=== PATIENT | female | born 1980 | race Caucasian/White ===

== ENCOUNTER 2016-11-02 16:48 | Emergency (ER) | payer SELFPAY ==
--- NOTE | 2016-11-02 17:07 | UC ---
UC General HPI - HPI Summary HPI Summary: The patient comes in today for: 1. Onset: Palliative/provocative: Quality: Region: Severity: Time: Associated symptoms: * - History of Current Complaint Stated Complaint: VOMITING Time Seen by Provider: 11/02/16 16:52 - Allergy/Home Medications Allergies/Adverse Reactions: Allergies Allergy/AdvReac Type Severity Reaction Status Date / Time No Known Allergies Allergy Verified 11/07/14 10:31 PMH/Surg Hx/FS Hx/Imm Hx - Surgical History Surgical History: Yes Surgery Procedure, Year, and Place: appendectomy - Social History Alcohol Use: Occasionally Substance Use Type: None Smoking Status (MU): Current Every Day Smoker Type: Cigarettes Amount Used/How Often: 1/2 ppd - Immunization History Most Recent Tetanus Shot: unknown
--- NOTE | 2016-11-02 17:17 | UC ---
Abdominal Pain Female HPI - HPI Summary HPI Summary: The patient comes in today for: 1. Abdominal pain and vomiting: Onset: 1.5 months ago. Palliative/provocative: Nothing makes her symptoms better or worse. Quality: Cramping and shooting. Region: Suprapubic area and epigastric area. Severity: Varies from 6/10 to 10/10. Presently it is 6/10 Time: Comes and goes. Associated symptoms: Abdominal pain: This pain also started about 1.5 months ago. She has different pains: 1. Suprapubic pain: Started 1.5 months ago. It is "like a period cramp." This is there "all the time." 6/10. 2. Shooting pain: This pain will come from the suprapubic area as stated above and will shoot and remain in the epigastric area. This pain is more a 10/10. Diarrhea: She has had this for 1.5 months. She has about 2-5 stools/ day. Stools have "mucous" and a mustard yellow color. Vomiting: She will vomit 1-7 times a day. She had vomited today about 7 times. She denies any blood or coffee ground emesis. Urination: "I've not pee'd a lot today." Previous evaluation: None. Previous treatment: None. PCP: "I don't have one--used to be 'family [facility]' in [place]." She can' t say why she is not going there any more. * - History of Current Complaint Chief Complaint: UCGU Stated Complaint: VOMITING Time Seen by Provider: 11/02/16 16:52 Hx Obtained From: Patient Hx Last Menstrual Period: IUD Allergies/Adverse Reactions: Allergies Allergy/AdvReac Type Severity Reaction Status Date / Time No Known Allergies Allergy Verified 11/02/16 17:03 PMH/Surg Hx/FS Hx/Imm Hx Previously Healthy: No - "ulcers." Other Endocrine History: No diabetes or thyroid disease Other Cardiovascular History: No heart or HTN. Other Respiratory History: No asthma, blood clots, hemoptysis. GI/ History: Gastroesophageal Reflux Other GI/ History: No history of intestinal bleeding or kidney disease. Other Neurological History: No seizues or strokes. Other Psychological History: No anxiety or depression. Other Cancer History: No cancers Other History Of: Negative For: HIV, Hepatitis B, Hepatitis C, Anticoagulant Therapy - Surgical History Surgical History: Yes Surgery Procedure, Year, and Place: appendectomy - Family History Known Family History: Positive: Hypertension Negative: Cardiac Disease - Social History Occupation: Employed Full-time Alcohol Use: Occasionally Substance Use Type: None Smoking Status (MU): Current Every Day Smoker Type: Cigarettes Amount Used/How Often: 1/2 ppd - Immunization History Most Recent Tetanus Shot: unknown Review of Systems Constitutional: Negative Skin: Negative Eyes: Negative ENT: Negative Respiratory: Negative Cardiovascular: Negative Gastrointestinal: Abdominal Pain, Vomiting, Diarrhea Genitourinary: Negative All Other Systems Reviewed And Are Negative: Yes Physical Exam Triage Information Reviewed: Yes Appearance: Well-Appearing, No Pain Distress, Well-Nourished, Other: - There is no psychomotor slowing or guarding or vomiting, or retching. She is animated. Vital Signs: Initial Vital Signs Temp 97.4 F 11/02/16 17:00 Pulse 79 11/02/16 17:00 Resp 18 11/02/16 17:00 BP 115/76 11/02/16 17:00 Pulse Ox 100 11/02/16 17:00 Vital Signs Reviewed: Yes Eyes: Negative: Conjunctiva Clear, Discharge ENT: Positive: Hearing grossly normal. Negative: Pharyngeal erythema, Nasal congestion, TM bulging, TM dull, TM red, Tonsillar swelling, Tonsillar exudate Dental: Negative: Gross Decay/Caries @, Dental Fracture @ Neck: Positive: Supple, Nontender, No Lymphadenopathy. Negative: Nuchal Rigidity Respiratory: Positive: Chest non-tender, Lungs clear, No respiratory distress, No accessory muscle use. Negative: Crackles, Wheezing Cardiovascular: Positive: RRR, No Murmur Abdomen Description: Positive: No Organomegaly, Soft. Negative: Nontender - She had some tenderness to deep palpation of the epigastric area and the suprapubic area. But, there is no percussion tenderness or rebound tenderness. , CVA Tenderness (R), CVA Tenderness (L), Distended, Guarding, Peritoneal Signs , Pulsatile Mass Musculoskeletal: Positive: Strength Intact, ROM Intact Neurological: Positive: Alert, Muscle Tone Normal Psychological: Positive: Age Appropriate Behavior, Consolable Skin: Negative: rashes, breakdown Abd Pain Female Course/Dx - Course Course Of Treatment: The patient was told that I did not know for sure what the cause of her abdominal pain is. The patient was told that there are many causes of abdominal pain--some benign to some which are. life-threatening. And the life-threatening causes may present with minimal symptoms, atypical symptoms,. or even be present with no symptoms. Due to this, it is necessary for us to rely on testing (blood, urine. and imaging studies) with their timely results to help us determine the seriousness of what the patient. may have. The patient was told that we are not set up to offer the broad range of tests for abdominal pain. nor their timely results that are usually used for the assessment of abdominal pain. The patient was told of the diagnostic and treatment options that we can offer. She decided to go to the ER via private car. No call was placed to the ER as this is the new policy. - Differential Dx/Diagnosis Provider Diagnoses: abdominal pain (epigastric and suprapubic) Discharge - Discharge Plan Condition: Stable Disposition: AGAINST MEDICAL ADVICE Additional Instructions: Patient stated that she was going to the ER via private car.
[2016-11-02 17:38] VITALS: BP 124/84
== END 2016-11-02 17:32 | disposition left against medical advice (07) ==
LOC: UCEAST 16:48
DX: R10.13 Epigastric pain (principal); K21.9 Gastro-esophageal reflux disease without esophagitis; F17.210 Nicotine dependence, cigarettes, uncomplicated
CPT/HCPCS: 99212; G0463

== ENCOUNTER 2016-11-02 17:59 | Emergency (ER) | payer SELFPAY ==
[2016-11-02] MEDS ORDERED: Pantoprazole IV* 40 MG IV ONE (19:13)
[2016-11-02] MEDS ORDERED: Ondansetron INJ* 2 MG/ML VIAL IV ONE (19:13)
[2016-11-02] MEDS ORDERED: Morphine INJ* 4 MG/ML 1 ML SYRINGE IV ONE (19:13)
[2016-11-02] MEDS: NS 0.9% 1000 ML* 2,000 ML IV ONE ×2 (19:27→20:25)
[2016-11-02 19:29] LABS: Hematocrit 42 % (35-47); Hemoglobin 14.3 g/dl (12.0-16.0); Mean Corpuscular HGB Conc 34 g/dl (31-36); Mean Corpuscular Hemoglobin 32 pg (27-31); Mean Corpuscular Volume 94 fL (80-97); Mean Platelet Volume 8 um3 (7.4-10.4); Red Blood Count 4.47 10^6/ul (4.0-5.4); Red Cell Distribution Width 13 % (10.5-15); White Blood Count 14.9 10^3/ul (3.5-10.8)
[2016-11-02 19:49] LABS: ALT 7 U/L (7-52); AST 15 U/L (13-39); Albumin 4.2 g/dL (3.2-5.2); Alkaline Phosphatase 47 U/L (34-104); Amylase 40 U/L (29-103); Anion Gap 6 mmol/L (2-11); BUN/Creatinine Ratio 16.5 (8-20); Blood Urea Nitrogen 14 mg/dL (6-24); C Reactive Protein < 1.00 mg/L (< 5.00); CO2 Carbon Dioxide 24 mmol/L (22-32); Calcium 9.2 mg/dL (8.6-10.3); Chloride 105 mmol/L (101-111); Creatine Kinase 58 U/L (10-223); EGFR African American 98.5 (>60); EGFR Non-African American 76.6 (>60); Globulin 2.8 g/dL (2-4); Glucose 87 mg/dL (70-100); Lipase 23 U/L (11.0-82.0); Potassium 3.8 mmol/L (3.5-5.0); Sodium 135 mmol/L (133-145)
--- NOTE | 2016-11-02 19:57 | RAD ---
INDICATION: ] Right upper quadrant pain COMPARISON: Gallbladder sonogram December 07, 2013 TECHNIQUE: Longitudinal and transverse scans of the right upper quadrant were obtained. Doppler interrogation of the hepatic and portal venous system was performed. FINDINGS: Liver: The liver is normal in size and echogenicity. There are no focal masses. The liver measures 17.7 cm in cephalocaudal dimension. Vessels: There is normal hepatic and portal venous flow. Bile ducts: There is no evidence of intrahepatic or extrahepatic ductal dilatation. The common duct measures 0.2 cm. There is a fold in the gallbladder. Gallbladder: The sonographic appearance of the gallbladder is normal. There is no evidence of cholelithiasis, thickening of the gallbladder wall, or pericholecystic fluid. Pancreas: The visualized pancreas appears normal Right kidney: The right kidney is normal in size and echogenicity. There are no masses or calculi. There is no evidence of hydronephrosis. The right kidney measures 10.6 x 4.3 x 4.7 cm. IVC and aorta: The aorta and superior vena cava appear normal. Fluid: There is no ascites. Other: None. IMPRESSION: NORMAL STUDY.
[2016-11-02 20:00] LABS: Urine Bilirubin Negative (Negative); Urine Glucose Negative (Negative); Urine Nitrite Negative (Negative)
[2016-11-02] MEDS ORDERED: Iohexol 300* (CONTRAST) 10 ML SDV IV ONE (20:07)
--- NOTE | 2016-11-02 21:30 | RAD ---
INDICATION: Abdominal pain. Colitis. Diarrhea.. COMPARISON: Color sonogram same date; CT abdomen pelvis August 10, 2009 TECHNIQUE: Axial source images were obtained from the hemidiaphragms to the symphysis pubis following administration of oral and intravenous contrast. 60 mL Omnipaque 300 was utilized. Coronal and sagittal reconstructed images were acquired. Lung bases: The lung bases are clear. Liver: The liver is normal in size. There are no masses. There is no ductal dilatation. Gallbladder: There are calcified gallstones. There is no evidence of wall thickening or pericholecystic fluid. Spleen: The spleen is normal in size. There are no masses. Pancreas: There is no focal pancreatic mass or ductal dilatation. Adrenal glands: There is no evidence of adrenal mass. Kidneys: The kidneys are normal in size and position. There are prompt nephrograms and there is prompt excretion bilaterally. There are no renal parenchymal masses. There is no evidence of nephrolithiasis. Adenopathy: There is no evidence of adenopathy by size criteria. Fluid collections: There are no free or localized fluid collections. Vessels:There are no significant atherosclerotic changes involving the aorta. There is no focal aneurysm. The iliac vessels are normal in caliber. The IVC appears normal. GI tract: There are no acute CT bowel findings. There is no obstruction. The stomach and small bowel appear normal. The lower GI tract is normal. The cecum, ileocecal valve, and terminal ileum appear normal. There is appendectomy. Pelvic organs: The uterus and adnexa appear normal and there is an IUD. Bladder: There are no bladder masses. Abdominal and pelvic soft tissues: The extraperitoneal abdominal and pelvic soft tissues appear normal.. Osseous structures: There are no acute osseous findings. Other: None IMPRESSION: NO ACUTE CT FINDINGS. NO MASS OR INFLAMMATORY CHANGES.
[2016-11-02] MEDS ORDERED: Ondansetron ODT TAB* 4 MG PO ONE (22:15)
[2016-11-02 22:25] VITALS: BP 110/88
--- NOTE | 2016-11-02 22:56 | ED ---
Shantel Warren Claudia, scribed for Jeremy Barrett MD on 11/02/16 at 1856 . Abdominal Pain/Female - HPI Summary HPI Summary: 36 year old female presents to the ED with abd pain and NVD. Pt states she has had these Sx for about 1 month. She states constant suprapubic cramping with intermittent episodes of sharp pain radiating to her eipgastrium and RUQ. Pt sates NVD for 1 month. She notes some days are worse than others but most days include bouts of emesis and diarrhea. She notes PO aggravates her Sx. She notes that she has been unable to keep down water and food today. Pt notes that she intermittently takes Aleve for the pain which has not helped in alleviating her pain. She notes current pain 12/11. She also notes some changes to her urine over the pats month stating it is a darker yellow color with some odorous quality but denies it being a dark brown color. Pt also denies any bloody stool , no excessive use of aspirin, recent travel. She does note that her clothes could have gotten a little baggy in the last month but she is unsure of any significant weight loss. Pt also notes some recent spontaneous bruising to her hands and feet and is unsure if it is related. PMHx of Gastritis PSHx Appendectomy - History of Current Complaint Chief Complaint: EDAbdPain Stated Complaint: ABD PAIN, COMMING FROM [facility] Hx Obtained From: Patient Hx Last Menstrual Period: unknown, mirena Timing: Constant Pain Intensity: 7 Pain Scale Used: 0-10 Numeric Location: Discrete At: RUQ, Discrete At: RLQ, Discrete At: LUQ, Epigastric Radiates: Yes Character: Sharp, Cramping Aggravating Factor(s): Food Alleviating Factor(s): Nothing Associated Signs and Symptoms: Positive: Decreased Appetite, Nausea, Vomiting, Diarrhea. Negative: Fever, Blood in Stool Allergies/Adverse Reactions: Allergies Allergy/AdvReac Type Severity Reaction Status Date / Time No Known Allergies Allergy Verified 11/02/16 17:03 PMH/Surg Hx/FS Hx/Imm Hx Previously Healthy: Yes Endocrine/Hematology History: Denies: Hx Anticoagulant Therapy, Hx Diabetes, Hx Thyroid Disease Cardiovascular History: Denies: Hx Hypertension Respiratory History: Denies: Hx Asthma, Hx Chronic Obstructive Pulmonary Disease (COPD) GI History: Denies: Hx Ulcer - Surgical History Surgery Procedure, Year, and Place: appendectomy Infectious Disease History: No Infectious Disease History: Denies: Hx Clostridium Difficile, Hx Hepatitis, Hx Human Immunodeficiency Virus (HIV), Hx of Known/Suspected MRSA, Hx Shingles, Hx Tuberculosis, Hx Known/ Suspected VRE, Hx Known/Suspected VRSA, History Other Infectious Disease, Traveled Outside the [place] in Last 30 Days - Family History Known Family History: Positive: Hypertension Negative: Cardiac Disease - Social History Occupation: Employed Full-time Lives: With Family Alcohol Use: Occasionally Substance Use Type: Reports: None Smoking Status (MU): Current Every Day Smoker Type: Cigarettes Amount Used/How Often: 1/2 ppd Review of Systems Positive: Chills. Negative: Fever Eyes: Negative ENT: Negative Cardiovascular: Negative Respiratory: Negative Positive: Abdominal Pain, Vomiting, Diarrhea, Nausea Positive: other - increased in yelow color of urine with some odorous quality Skin: Negative Neurological: Negative Psychological: Normal All Other Systems Reviewed And Are Negative: Yes Physical Exam - Summary Physical Exam Summary: The patient is well-nourished in no acute distress and in no acute pain. The skin is warm and dry and skin color reflects adequate perfusion. HEENT: The head is normocephalic and atraumatic. The pupils are equal and reactive. The conjunctivae are clear and without drainage. Nares are patent and without drainage. Mouth reveals moist mucous membranes and the throat is without erythema and exudate. The external ears are intact. The ear canals are patent and without drainage. The tympanic membranes are intact. Sclera clear, no pallor or janudice. Neck is supple with full range of motion and non-tender. There are no carotid bruits. There is no neck vein distension. Respiratory: Chest is non-tender. Lungs are clear to auscultation and breath sounds are symmetrical and equal. Cardiovascular: Hear is regular rate and rhythm. There is no murmur or rub auscultated. There is no peripheral edema and pulses are symmetrical and equal. Abdomen: The abdomen is soft and tender at the RUQ, RLQ, and LLQ. No tenderness over the ovaries. Hyperactive bowel sounds four quadrants and there is no organomegaly palpated. No CVA tenderness Musculoskeletal: There is no back pain noted. Extremities are non-tender with full range of motion. There is good capillary refill. There is no peripheral edema or calf tenderness elicited. Neurological: Patient is alert and oriented to person, place and time. The patient has symmetrical motor strength in all four extremities. Cranial nerves are grossly intact. Deep tendon reflexes are symmetrical and equal in all four extremities. Psychiatric: The patient has an appropriate affect and does not exhibit any anxiety or depression. Triage Information Reviewed: Yes Vital Signs On Initial Exam: Initial Vitals Temp Pulse Resp BP Pulse Ox 98.2 F 80 20 119/73 100 11/02/16 18:06 11/02/16 18:06 11/02/16 18:06 11/02/16 18:06 11/02/16 18:06 Vital Signs Reviewed: Yes - [place] Coma Scale Coma Scale Total: 15 Diagnostics - Vital Signs Vital Signs Temp Pulse Resp BP Pulse Ox 11/02/16 18:30 72 108/62 100 11/02/16 18:29 81 98 11/02/16 18:28 116/77 11/02/16 18:08 97.9 F 78 20 119/73 100 11/02/16 18:06 98.2 F 80 20 119/73 100 - Laboratory Lab Results: Lab Results 11/02/16 11/02/16 11/02/16 Range/Units 18:21 19:20 19:20 WBC 14.9 H (3.5-10.8) 10^3/ul RBC 4.47 (4.0-5.4) 10^6/ul Hgb 14.3 (12.0-16.0) g/dl Hct 42 (35-47) % MCV 94 (80-97) fL MCH 32 H (27-31) pg MCHC 34 (31-36) g/dl RDW 13 (10.5-15) % Plt Count 327 (150-450) 10^3/ul MPV 8 (7.4-10.4) um3 Neut % (Auto) 69.0 (38-83) % Lymph % (Auto) 20.6 L (25-47) % [place] % (Auto) 7.1 (1-9) % Eos % (Auto) 1.4 (0-6) % Baso % (Auto) 1.9 (0-2) % Absolute Neuts (auto) 10.3 H (1.5-7.7) 10^3/ul Absolute Lymphs (auto) 3.1 (1.0-4.8) 10^3/ul Absolute Monos (auto) 1.1 H (0-0.8) 10^3/ul Absolute Eos (auto) 0.2 (0-0.6) 10^3/ul Absolute Basos (auto) 0.3 H (0-0.2) 10^3/ul Absolute Nucleated RBC 0.01 10^3/ul Nucleated RBC % 0.1 Sodium 135 (133-145) mmol/L Potassium 3.8 (3.5-5.0) mmol/L Chloride 105 (101-111) mmol/L Carbon Dioxide 24 (22-32) mmol/L Anion Gap 6 (2-11) mmol/L BUN 14 (6-24) mg/dL Creatinine 0.85 (0.51-0.95) mg/dL Est GFR ( Amer) 98.5 (>60) Est GFR (Non-Af Amer) 76.6 (>60) BUN/Creatinine Ratio 16.5 (8-20) Glucose 87 (70-100) mg/dL Lactic Acid (0.5-2.0) mmol/L Calcium 9.2 (8.6-10.3) mg/dL Total Bilirubin 1.00 (0.2-1.0) mg/dL AST 15 (13-39) U/L ALT 7 (7-52) U/L Alkaline Phosphatase 47 (34-104) U/L Total Creatine Kinase 58 (10-223) U/L C-Reactive Protein < 1.00 (< 5.00) mg/L Total Protein 7.0 (6.4-8.9) g/dL Albumin 4.2 (3.2-5.2) g/dL Globulin 2.8 (2-4) g/dL Albumin/Globulin Ratio 1.5 (1-3) Amylase 40 (29-103) U/L Lipase 23 (11.0-82.0) U/L Beta HCG, Quant < 0.60 mIU/mL Urine Color Yellow Urine Appearance Clear Urine pH 7.0 (5-9) Ur Specific [place] 1.020 (1.010-1.030) Urine Protein Negative (Negative) Urine Ketones Negative (Negative) Urine Blood Negative (Negative) Urine Nitrate Negative (Negative) Urine Bilirubin Negative (Negative) Urine Urobilinogen Negative (Negative) Ur Leukocyte Esterase Negative (Negative) Urine Glucose Negative (Negative) 11/02/16 Range/Units 19:20 WBC (3.5-10.8) 10^3/ul RBC (4.0-5.4) 10^6/ul Hgb (12.0-16.0) g/dl Hct (35-47) % MCV (80-97) fL MCH (27-31) pg MCHC (31-36) g/dl RDW (10.5-15) % Plt Count (150-450) 10^3/ul MPV (7.4-10.4) um3 Neut % (Auto) (38-83) % Lymph % (Auto) (25-47) % [place] % (Auto) (1-9) % Eos % (Auto) (0-6) % Baso % (Auto) (0-2) % Absolute Neuts (auto) (1.5-7.7) 10^3/ul Absolute Lymphs (auto) (1.0-4.8) 10^3/ul Absolute Monos (auto) (0-0.8) 10^3/ul Absolute Eos (auto) (0-0.6) 10^3/ul Absolute Basos (auto) (0-0.2) 10^3/ul Absolute Nucleated RBC 10^3/ul Nucleated RBC % Sodium (133-145) mmol/L Potassium (3.5-5.0) mmol/L Chloride (101-111) mmol/L Carbon Dioxide (22-32) mmol/L Anion Gap (2-11) mmol/L BUN (6-24) mg/dL Creatinine (0.51-0.95) mg/dL Est GFR ( Amer) (>60) Est GFR (Non-Af Amer) (>60) BUN/Creatinine Ratio (8-20) Glucose (70-100) mg/dL Lactic Acid 1.0 (0.5-2.0) mmol/L Calcium (8.6-10.3) mg/dL Total Bilirubin (0.2-1.0) mg/dL AST (13-39) U/L ALT (7-52) U/L Alkaline Phosphatase (34-104) U/L Total Creatine Kinase (10-223) U/L C-Reactive Protein (< 5.00) mg/L Total Protein (6.4-8.9) g/dL Albumin (3.2-5.2) g/dL Globulin (2-4) g/dL Albumin/Globulin Ratio (1-3) Amylase (29-103) U/L Lipase (11.0-82.0) U/L Beta HCG, Quant mIU/mL Urine Color Urine Appearance Urine pH (5-9) Ur Specific [place] (1.010-1.030) Urine Protein (Negative) Urine Ketones (Negative) Urine Blood (Negative) Urine Nitrate (Negative) Urine Bilirubin (Negative) Urine Urobilinogen (Negative) Ur Leukocyte Esterase (Negative) Urine Glucose (Negative) Result Diagrams: 11/02/16 19:20 11/02/16 19:20 Lab Statement: Any lab studies that have been ordered have been reviewed, and results considered in the medical decision making process. - CT CT ABD PELVIS CT Interpretation: No Acute Changes - NO ACUTE CT FINDINGS. NO MASS OR INFLAMMATORY CHANGES. CT Interpretation Completed By: Radiologist - Ultrasound No standard instances Ultrasound Interpretation: No Acute Changes - GALLBLADDER STUDY: NORMAL STUDY Ultrasound Interpretation Completed By: Radiologist Re-Evaluation - Re-Evaluation 1 Re-Evaluation Time: 22:03 Change: Improved Comment: Lab results and imaging are discussed with patient whom is agreeable with the plan to be d/c home with follow-up with GI. Abdominal Pain Fem Course/Dx - Course Course Of Treatment: MDM: 36 year old pt presents to the ED with abd pain. Concerned for diverticulitis and gallbladder disease. CT Abd/Pelvis and US Gallbladder displayed no acute findings. Labwork was within nml limits. Pt will be d/c home and followe-up with GI Dr. Jurado - Diagnoses Differential Diagnosis: Positive: Bowel Obstruction, Constipation, Diverticulitis, Gall Bladder Disease, Irritable Bowel Syndrome, Pancreatitis, Renal Colic, Other - crohn's, colitis, ulcerative colitis, peptic ulcer disease , dehydration Provider Diagnoses: Abdominal pain Discharge - Discharge Plan Condition: Stable Disposition: HOME Prescriptions: Hydrocodone-Acetaminophen [Traphill 5-325 mg] 1 tab PO QID #20 tab MDD 4 Ondansetron ODT TAB* [Zofran 4 MG Odt TAB*] 4 mg PO Q8H PRN #10 tab.odt PRN Reason: nausea Patient Education Materials: Abdominal Pain (ED) Referrals: MANOHAR BhatEnrique [Primary Care Provider] - David Jurado MD [Medical Doctor] - 4 Days (Follow-up with a Gastrointestinal Physician ) The documentation as recorded by the Shantel chaves Claudia accurately reflects the service I personally performed and the decisions made by me, Jeremy Barrett MD.
== END 2016-11-02 22:24 | disposition home or self-care (01) ==
LOC: ED 17:59
DX: R10.84 Generalized abdominal pain (principal); R11.2 Nausea with vomiting, unspecified; R19.7 Diarrhea, unspecified; F17.210 Nicotine dependence, cigarettes, uncomplicated
CPT/HCPCS: 36415; 74177; 76705; 80053; 81003; 82150; 82550; 83605; 83690; 84702; 85025; 86140; 96374; 99283; A9270-GY; J2270; J2405; Q9967

== ENCOUNTER 2018-08-19 18:25 | Emergency (ER) | payer SELFPAY ==
[2018-08-19 21:09] LABS: ABS Basophils 0.1 10^3/ul (0-0.2); ABS Eosinophils 0.1 10^3/ul (0-0.6); ABS Lymphocytes 3.2 10^3/ul (1.0-4.8); ABS Monocytes 0.5 10^3/ul (0-0.8); ABS Neutrophils 5.1 10^3/ul (1.5-7.7); ABS Nucleated RBC 0 10^3/ul; Eosinophil % 1.6 %; Hematocrit 43 % (33-41); Hemoglobin 14.7 g/dL (12.0-16.0); Lymphocyte % 35.7 %; Mean Corpuscular HGB Conc 35 g/dL (31-36); Mean Corpuscular Hemoglobin 32 pg (27-31); Mean Corpuscular Volume 93 fL (80-97); Mean Platelet Volume 7.5 fL (7.4-10.4); Nucleated Red Blood Cells % 0; Platelet Count 383 10^3/uL (150-450); Red Blood Count 4.62 10^6 /uL (3.70-4.87); Red Cell Distribution Width 13 % (10.5-15)
[2018-08-19 21:26] LABS: Albumin 4.7 g/dL (3.2-5.2); Albumin/Globulin Ratio 1.7 (1-3); BUN/Creatinine Ratio 15.7 (8-20); C Reactive Protein 2.68 mg/L (<8.01); Calcium 9.5 mg/dL (8.6-10.3); EGFR African American 94.1 (>60); EGFR Non-African American 77.8 (>60); Globulin 2.8 g/dL (2-4); Potassium 4.1 mmol/L (3.5-5.0); Total Bilirubin 0.6 mg/dL (0.2-1.0); Total Protein 7.5 g/dL (6.4-8.9)
[2018-08-19] MEDS ORDERED: Ketorolac INJ* 30 MG/ML 1 ML VIAL IV PUSH ONE (22:58)
[2018-08-19] MEDS ORDERED: Metoclopramide IV* 5 MG/ML 2 ML VIAL IV SLOW PU ONE (22:59)
[2018-08-19] MEDS ORDERED: NS 0.9% 1000 ML** 1,000 ML IV ONE (22:59)
--- NOTE | 2018-08-19 23:08 | ED ---
Abdominal Pain/Female - HPI Summary HPI Summary: Pt is a 38 y/o F presenting to the ED with a chief complaint of lower left back pain that radiates to her LLQ abd, including vomiting. The pain came on last night but vomiting and diarrhea has been intermittent for a couple months due to anxiety. She takes Sudafed at night for bad headaches, which she has now. She also reports her urine smells weird, and she does not get her period because she has an IUD. - History of Current Complaint Chief Complaint: EDAbdPain Stated Complaint: BACK PAIN PER PT Time Seen by Provider: 08/19/18 22:44 Hx Obtained From: Patient Hx Last Menstrual Period: unknown, mirena Onset/Duration: Gradual Onset, Lasting Days, Still Present Timing: Constant Severity Initially: Severe Severity Currently: Severe Pain Intensity: 10 Pain Scale Used: 0-10 Numeric Location: Discrete At: LLQ Radiates: Yes Radiates to: Back Character: Sharp, Cramping Aggravating Factor(s): Movement Alleviating Factor(s): Nothing Associated Signs and Symptoms: Positive: Urinary Symptoms - foul odor, Nausea, Vomiting, Diarrhea Allergies/Adverse Reactions: Allergies Allergy/AdvReac Type Severity Reaction Status Date / Time No Known Allergies Allergy Verified 08/19/18 18:37 Home Medications: Home Medications NK [No Home Medications Reported] 08/19/18 [History Confirmed 08/19/18] PMH/Surg Hx/FS Hx/Imm Hx Previously Healthy: Yes Endocrine/Hematology History: Denies: Hx Anticoagulant Therapy, Hx Diabetes, Hx Thyroid Disease Cardiovascular History: Denies: Hx Hypertension Respiratory History: Denies: Hx Asthma, Hx Chronic Obstructive Pulmonary Disease (COPD) GI History: Denies: Hx Ulcer - Surgical History Surgery Procedure, Year, and Place: appendectomy Infectious Disease History: No Infectious Disease History: Denies: Hx Clostridium Difficile, Hx Hepatitis, Hx Human Immunodeficiency Virus (HIV), Hx of Known/Suspected MRSA, Hx Shingles, Hx Tuberculosis, Hx Known/ Suspected VRE, Hx Known/Suspected VRSA, History Other Infectious Disease, Traveled Outside the [place] in Last 30 Days - Family History Known Family History: Positive: Hypertension Negative: Cardiac Disease - Social History Alcohol Use: Occasionally Hx Substance Use: No Substance Use Type: Reports: None Hx Tobacco Use: Yes Smoking Status (MU): Current Every Day Smoker Type: Cigarettes Amount Used/How Often: 1/2 ppd Review of Systems Negative: Fever Positive: Abdominal Pain, Vomiting, Diarrhea, Nausea Positive: other - foul odor to urine Positive: Myalgia - back pain Positive: Headache All Other Systems Reviewed And Are Negative: Yes Physical Exam - Summary Physical Exam Summary: VITAL SIGNS: Reviewed. GENERAL: Patient is a well-developed and nourished female who is lying comfortable in the stretcher. Patient is not in any acute respiratory distress. HEAD AND FACE: No signs of trauma. No ecchymosis, hematomas or skull depressions. No sinus tenderness. EYES: PERRLA, EOMI x 2, No injected conjunctiva, no nystagmus. EARS: Hearing grossly intact. Ear canals and tympanic membranes are within normal limits. MOUTH: Oropharynx within normal limits. NECK: Supple, trachea is midline, no adenopathy, no JVD, no carotid bruit, no c- spine tenderness, neck with full ROM. CHEST: Symmetric, no tenderness at palpation LUNGS: Clear to auscultation bilaterally. No wheezing or crackles. CVS: Regular rate and rhythm, S1 and S2 present, no murmurs or gallops appreciated. ABDOMEN: LLQ tenderness. No signs of distention. No rebound no guarding, and no masses palpated. Hyperactive bowel sounds. L CVA tenderness. EXTREMITIES: FROM in all major joints, no edema, no cyanosis or clubbing. NEURO: Alert and oriented x 3. No acute neurological deficits. Speech is normal and follows commands. SKIN: Dry and warm Triage Information Reviewed: Yes Vital Signs On Initial Exam: Initial Vitals Temp Pulse Resp BP Pulse Ox 98.4 F 123 16 148/122 97 08/19/18 18:34 08/19/18 18:34 08/19/18 18:34 08/19/18 18:34 08/19/18 18:34 Vital Signs Reviewed: Yes Diagnostics - Vital Signs Vital Signs Temp Pulse Resp BP Pulse Ox 08/19/18 20:34 98.2 F 79 20 124/93 99 08/19/18 18:34 98.4 F 123 16 148/122 97 - Laboratory Lab Results: Lab Results 08/19/18 08/19/18 08/19/18 Range/Units 21:02 21:02 21:02 WBC 9.0 (3.5-10.8) 10^3/uL RBC 4.62 (3.70-4.87) 10^6 /uL Hgb 14.7 (12.0-16.0) g/dL Hct 43 H (33-41) % MCV 93 (80-97) fL MCH 32 H (27-31) pg MCHC 35 (31-36) g/dL RDW 13 (10.5-15) % Plt Count 383 (150-450) 10^3/uL MPV 7.5 (7.4-10.4) fL Neut % (Auto) 56.1 % Lymph % (Auto) 35.7 % [place] % (Auto) 5.6 % Eos % (Auto) 1.6 % Baso % (Auto) 1.0 % Absolute Neuts (auto) 5.1 (1.5-7.7) 10^3/ul Absolute Lymphs (auto) 3.2 (1.0-4.8) 10^3/ul Absolute Monos (auto) 0.5 (0-0.8) 10^3/ul Absolute Eos (auto) 0.1 (0-0.6) 10^3/ul Absolute Basos (auto) 0.1 (0-0.2) 10^3/ul Absolute Nucleated RBC 0 10^3/ul Nucleated RBC % 0 Sodium 138 (135-145) mmol/L Potassium 4.1 (3.5-5.0) mmol/L Chloride 104 (101-111) mmol/L Carbon Dioxide 26 (22-32) mmol/L Anion Gap 8 (2-11) mmol/L BUN 13 (6-24) mg/dL Creatinine 0.83 (0.51-0.95) mg/dL Est GFR ( Amer) 94.1 (>60) Est GFR (Non-Af Amer) 77.8 (>60) BUN/Creatinine Ratio 15.7 (8-20) Glucose 102 H (70-100) mg/dL Calcium 9.5 (8.6-10.3) mg/dL Total Bilirubin 0.60 (0.2-1.0) mg/dL AST 14 (13-39) U/L ALT 7 (7-52) U/L Alkaline Phosphatase 59 (34-104) U/L C-Reactive Protein 2.68 (<8.01) mg/L Total Protein 7.5 (6.4-8.9) g/dL Albumin 4.7 (3.2-5.2) g/dL Globulin 2.8 (2-4) g/dL Albumin/Globulin Ratio 1.7 (1-3) Lipase 32 (11.0-82.0) U/L Beta HCG, Quant < 0.60 mIU/mL Result Diagrams: 08/19/18 21:02 08/19/18 21:02 Lab Statement: Any lab studies that have been ordered have been reviewed, and results considered in the medical decision making process. - CT abdomen/pelvis CT Interpretation Completed By: Radiologist Summary of CT Findings: 1. Right lower lobe pulmonary nodule. 2. Small fat containing umbilical hernia. 3. Intrauterine device seen in place, as described above. ED physician has reviewed this imaging report. Abdominal Pain Fem Course/Dx - Course Course Of Treatment: Pt is a 38 y/o F presenting to the ED with a chief complaint of lower left back pain that radiates to her LLQ abd, including vomiting. The pain came on last night but vomiting and diarrhea has been intermittent for a couple months due to anxiety. She takes Sudafed at night for bad headaches, which she has now. She also reports her urine smells weird, and she does not get her period because she has an IUD. CT abdomen/pelvis impression: 1. Right lower lobe pulmonary nodule. 2. Small fat containing umbilical hernia. 3. Intrauterine device seen in place, as described above. In the ED course the patient was given Reglan IV and Toradol IV. Bloodwork, chemistries and urines obtained. Urine blood 2+. The patient will be discharged home. She is agreeable with this plan. - Diagnoses Provider Diagnoses: Lung nodule, Abdominal pain Discharge - Sign-Out/Discharge Documenting (check all that apply): Patient Departure - DC Patient Received Moderate/Deep Sedation with Procedure: No - Discharge Plan Condition: Stable Disposition: HOME Patient Education Materials: Abdominal Pain (ED), Pulmonary Nodules (ED) Referrals: [facility] REFERRAL [Outside] (1-2 days) Additional Instructions: RETURN TO THE EMERGENCY DEPARTMENT FOR CHANGING OR WORSENING SYMPTOMS. FOLLOW UP WITH PCP IN 1-2 DAYS. - Billing Disposition and Condition Condition: STABLE Disposition: Home - Attestation Statements Document Initiated by Scribe: Yes Documenting Scribe: Emy O'Balbir Provider For Whom Scribe is Documenting (Include Credential): Gemma Barrera MD. Scribe Attestation: IEmy, scribed for Gemma Barrera MD. on 08/20/18 at 0615. Scribe Documentation Reviewed: Yes Provider Attestation: The documentation as recorded by the scribe, Emy Sorto accurately reflects the service I personally performed and the decisions made by me, Gemma Barrera MD. Status of Scribe Document: Viewed
[2018-08-19 23:22] LABS: Urine Appearance Clear; Urine Bacteria Absent (Absent); Urine Bilirubin Negative (Negative); Urine Blood 2+ (Negative); Urine Color Yellow; Urine Glucose Negative (Negative); Urine Ketones Negative (Negative); Urine Nitrite Negative (Negative); Urine Protein Negative (Negative); Urine Red Blood Cell Trace(0-2/hpf) (Absent); Urine Specific Gravity 1.011 (1.010-1.030); Urine Urobilinogen Negative (Negative); Urine White Blood Cell Absent (Absent)
[2018-08-20 01:17] VITALS: BP 113/68
== END 2018-08-20 01:17 | disposition home or self-care (01) ==
LOC: ED 18:25
DX: M54.5 Low back pain (principal); R91.1 Solitary pulmonary nodule; R10.9 Unspecified abdominal pain; F17.210 Nicotine dependence, cigarettes, uncomplicated; R11.2 Nausea with vomiting, unspecified
CPT/HCPCS: 36415; 74176; 80053; 81003; 81015; 83690; 84702; 85025; 86140; 96361; 96374; 96375; 99282; J1885; J2765

== ENCOUNTER 2019-01-08 18:53 | Emergency (ER) | payer OTHER ==
[2019-01-08 19:11] VITALS: BP 123/88
[2019-01-08] MEDS ORDERED: Ibuprofen TAB* 600 MG PO ONE (20:21)
--- NOTE | 2019-01-08 20:35 | UC ---
Elbow Pain - HPI Summary HPI Summary: 38 yo female slipped on wet steps and landed on right elbow numb from shoulder down tender and swollen over point of elbow - History of Current Complaint Chief Complaint: UCUpperExtremity Stated Complaint: ARM INJURY Time Seen by Provider: 01/08/19 20:30 Hx Obtained From: Patient Hx Last Menstrual Period: iud Onset/Duration: Hours Severity Initially: Severe Severity Currently: Severe Pain Intensity: 10 Pain Scale Used: 0-10 Numeric Character: Aching, Throbbing Aggravating Factor(s): Movement Alleviating Factor(s): Nothing Associated Signs And Symptoms: Positive: Numbness/Tingling - shoulder down - Allergies/Home Medications Allergies/Adverse Reactions: Allergies Allergy/AdvReac Type Severity Reaction Status Date / Time No Known Allergies Allergy Verified 01/08/19 19:11 PMH/Surg Hx/FS Hx/Imm Hx Previously Healthy: Yes Other History Of: Negative For: HIV, Hepatitis B, Hepatitis C, Anticoagulant Therapy - Surgical History Surgical History: Yes Surgery Procedure, Year, and Place: appendectomy - Family History Known Family History: Positive: Hypertension, Non-Contributory Negative: Cardiac Disease - Social History Alcohol Use: Occasionally Substance Use Type: None Smoking Status (MU): Light Every Day Tobacco Smoker Type: Cigarettes Amount Used/How Often: 1/2 ppd Household Exposure Type: Cigarettes - Immunization History Most Recent Tetanus Shot: unknown Review of Systems All Other Systems Reviewed And Are Negative: Yes Constitutional: Positive: Negative Skin: Positive: Negative Eyes: Positive: Negative ENT: Positive: Negative Respiratory: Positive: Negative Cardiovascular: Positive: Negative Gastrointestinal: Positive: Negative Genitourinary: Positive: Negative Musculoskeletal: Positive: Arthralgia - right elbow Neurological: Positive: Numbness - from shoulder down Psychological: Positive: Negative Physical Exam Triage Information Reviewed: Yes Appearance: Pain Distress Vital Signs: Initial Vital Signs Temp 97.8 F 01/08/19 19:05 Pulse 90 01/08/19 19:05 Resp 16 01/08/19 19:05 BP 123/88 01/08/19 19:05 Pulse Ox 100 01/08/19 19:05 Vital Signs Reviewed: Yes Eyes: Positive: Conjunctiva Clear ENT: Positive: Hearing grossly normal. Negative: Nasal congestion, Nasal drainage, Trismus, Muffled voice, Hoarse voice Neck: Positive: Supple, Nontender, No Lymphadenopathy Respiratory: Positive: Lungs clear, Normal breath sounds, No respiratory distress, No accessory muscle use Cardiovascular: Positive: RRR, No Murmur Musculoskeletal: Positive: ROM Limited @ - r sholder/elbow/wrist, Edema @ - over elecranon Neurological: Positive: Alert Psychological Exam: Normal Skin Exam: Normal Images Front/Back of Body, Lg ([place]): 1 - tender 2 - numb Diagnostics - Radiology No standard instances Radiology Interpretation Completed By: Radiologist Summary of Radiographic Findings: spur olecranon- no fx noted Elbow Pain Course/Dx - Differential Dx/Diagnosis Provider Diagnosis: Contusion of right elbow, Injury of right brachial plexus, Effusion of right olecranon bursa Discharge - Sign-Out/Discharge Documenting (check all that apply): Patient Departure All imaging exams completed and their final reports reviewed: No - Discharge Plan Condition: Stable Disposition: HOME Forms: *Work Release Referrals: Emily Fernandes MD [Medical Doctor] - Additional Instructions: let us know if you have trouble seeing an orthopedist tomorrow I think you have sustained a RIGHT BRACHIAL PLEXUS INJURY You also have a right elbow contusion You have a right olecranon effusion sling adelfo otoole - Billing Disposition and Condition Condition: STABLE Disposition: Home
[2019-01-08] MEDS ORDERED: Ibuprofen TAB* 600 MG ONE (20:37)
[2019-01-08] MEDS ORDERED: HYDROcodone/ACETAMIN 5-325 MG* 1 TAB PO ONE (20:54)
[2019-01-08] MEDS ORDERED: HYDROcodone/ACETAMIN 5-325 MG* 1 TAB ONE (20:58)
--- NOTE | 2019-01-09 07:39 | UC ---
- Progress Note Progress Note: Chart reviewed Elbow XR with no fracture No change in plan Course/Dx - Diagnoses Provider Diagnoses: Contusion of right elbow, Injury of right brachial plexus, Effusion of right olecranon bursa Discharge - Sign-Out/Discharge Documenting (check all that apply): Post-Discharge Follow Up All imaging exams completed and their final reports reviewed: Yes - Discharge Plan Condition: Stable Disposition: HOME Forms: *Work Release Referrals: Emily Fernandes MD [Medical Doctor] - Additional Instructions: let us know if you have trouble seeing an orthopedist tomorrow I think you have sustained a RIGHT BRACHIAL PLEXUS INJURY You also have a right elbow contusion You have a right olecranon effusion sling ice evelina otoole - Billing Disposition and Condition Condition: STABLE Disposition: Home
== END 2019-01-08 21:05 | disposition home or self-care (01) ==
LOC: UCEAST 18:53
DX: S50.01XA Contusion of right elbow, initial encounter (principal); S14.3XXA Injury of brachial plexus, initial encounter; M70.21 Olecranon bursitis, right elbow; W10.9XXA Fall (on) (from) unspecified stairs and steps, initial encounter; Y92.9 Unspecified place or not applicable; F17.210 Nicotine dependence, cigarettes, uncomplicated
CPT/HCPCS: 99213; A9270-GY; G0463

== ENCOUNTER 2019-09-06 18:50 | Emergency (ER) | payer SELFPAY ==
--- OUTSIDE RECORDS SUMMARY | 2019-09-06 19:06 | XMS REPORT | Continuity of Care Document ---
:1980 External Reference #:[id number] Author Name MELANIE Mcdonough (transmitted by agent of provider Mary Bolnad) Address [address] [place] [address] Problems Description No Information Available Social History Type Date Description Comments Sex Unknown Tobacco Use Start: Unknown Patient is a current cigarette smoker, 1/2 PPD smokes every day ETOH Use Occasionally consumes alcohol Recreational Drug Use Denies Drug Use Enjoy Exercising Enjoys exercising Allergies, Adverse Reactions, Alerts Active Allergies Reaction Severity Comments Date Keflex 05/21/2019 Medications Active Medications SIG Qnty Indications Ordering Date Provider Amitriptyline HCL take one tablet by 30tabs G47.00 Tawanda R. 08/05/2019 50mg mouth at bedtime James APPLICATION SECURITY SPECIALIST-C Tablets for sleep and depression Pantoprazole Sodium 1 by mouth every 90tabs Tawanda R. 08/05/2019 day James APPLICATION SECURITY SPECIALIST-C 40mg Tablets DR Chen Drink Mix Drink One Packet 24units K58.2 Sandeepi R. 07/15/2019 In 8 Ounces Of James APPLICATION SECURITY SPECIALIST-C Packet Fluids Twice Daily Fluoxetine HCL 1 by mouth every 30caps F41.9 Mannywnti RAbby 05/21/2019 20mg day James APPLICATION SECURITY SPECIALIST-C Capsules History Medications Amitriptyline HCL take one tablet 30tabs G47.00 Mannywnti R. 07/15/2019 - 25mg by mouth at James, APPLICATION SECURITY SPECIALIST-C 08/05/2019 Tablets bedtime Trazodone HCL take 1 or 2 60tabs G47.00 Mannywclemencia R. 06/20/2019 - 50mg tablet by mouth James, APPLICATION SECURITY SPECIALIST-C 07/15/2019 Tablets at bedtime if needed for sleep No Active Medications Unknown 05/21/2019 - 05/21/2019 Immunizations CPT Code Status Date Vaccine Lot # [id number] Given 04/08/2019 Influenza Virus Vaccine, Quadrivalent, 3 Yr > Quad, Preserv Free Vital Signs Date Vital Result Comment 08/05/2019 8:11am Weight 125.00 lb Weight 56.700 kg BP Systolic 110 mmHg BP Diastolic 68 mmHg Heart Rate 82 /min Body Temperature 98.8 F Respiratory Rate 20 /min 07/15/2019 8:36am Weight 122.00 lb Weight 55.339 kg BP Systolic 110 mmHg BP Diastolic 70 mmHg Heart Rate 78 /min Body Temperature 97.2 F Respiratory Rate 16 /min O2 % BldC Oximetry 97 % Results Test Acquired Date Facility Test Result H/L Range Note Laboratory test 08/05/2019 In House Lab HCG DIP Test neg Neg finding [phone] Lipid Profile 06/10/2019 [facility] Triglycerides 272 mg/dL 1 (Trig/Chol/HDL) [phone] Cholesterol 185 mg/dL 2 HDL Cholesterol 50.9 mg/dL 3 LDL Cholesterol 80 mg/dL 4 Laboratory test 05/21/2019 [facility] Cytology SEE RESULT 5 finding [phone] BELOW CBC Auto Diff 05/21/2019 [facility] White Blood 10.2 Normal 3.5-4 [phone] Count 10^3/uL 0.8 Red Blood Count 4.65 10^6/uL Normal 3.70-4.87 Hemoglobin 15.2 g/dL Normal 12.0-16.0 Hematocrit 44 % Normal 35-47 Mean Corpuscular Volume 95 fL Normal 80-97 Mean Corpuscular Hemoglobin 33 pg High 27-31 Mean Corpuscular HGB Conc 35 g/dL Normal 31-36 Red Cell Distribution Width 13 % Normal 10-15 Platelet Count 423 10^3/uL Normal 150-450 Mean Platelet Volume 8.3 fL Normal 7.4-10.4 Abs Neutrophils 6.2 10^3/uL Normal 1.5-7.7 Abs Lymphocytes 3.0 10^3/uL Normal 1.0-4.8 Abs Monocytes 0.7 10^3/uL Normal 0-0.8 Abs Eosinophils 0.2 10^3/uL Normal 0-0.6 Abs Basophils 0.1 10^3/uL Normal 0-0.2 Abs Nucleated RBC 0.1 10^3/uL Granulocyte % 60.8 % Lymphocyte % 29.9 % Monocyte % 7.2 % Eosinophil % 1.6 % Basophil % 0.5 % Nucleated Red Blood Cells % 0.5 Comp Metabolic 05/21/2019 [facility] Sodium 139 mmol/ L Normal 135-145 Panel [phone] Potassium 4.3 mmol/L Normal 3.5-5.0 Chloride 106 mmol/L Normal 101-111 Co2 Carbon Dioxide 25 mmol/L Normal 22-32 Anion Gap 8 mmol/L Normal 2-11 Glucose 83 mg/dL Normal 70-100 Blood Urea Nitrogen 9 mg/dL Normal 6-24 Creatinine 0.80 mg/dL Normal 0.51-0.95 BUN/Creatinine Ratio 11.3 Normal 8-20 Calcium 9.8 mg/dL Normal 8.6-10.3 Total Protein 7.8 g/dL Normal 6.4-8.9 Albumin 4.7 g/dL Normal 3.2-5.2 Globulin 3.1 g/dL Normal 2-4 Albumin/Globulin Ratio 1.5 Normal 1-3 Total Bilirubin 0.40 mg/dL Normal 0.2-1.0 Alkaline Phosphatase 67 U/L Normal 34-104 Alt 8 U/L Normal 7-52 Ast 16 U/L Normal 13-39 Egfr Non- 80.7 >60 Egfr 97.7 >60 6 Lipid Profile 05/21/2019 [facility] Triglycerides 429 mg/dL 7 (Trig/Chol/HDL) [phone] Cholesterol 186 mg/dL 8 HDL Cholesterol 41.1 mg/dL 9 LDL Cholesterol (SEE NOTE) mg/dL 10 Laboratory 05/21/2019 [facility] TSH (Thyroid 1.92 Normal 0.34-5.60 11 test finding [phone] Stim Horm) mcIU/mL Hemoglobin A1c (Glyco HGB) 5.1 % Normal 4.0-5.6 12 LDL Cholesterol Direct 114 mg/dL 13 1 Desirable: <150 Borderline High: 150-199 High: 200-499 Very High: >500 2 Desirable: <200 Borderline High: 200-239 High: >239 3 Low: <40 Desirable: 40-60 High: >60 4 Desirable: <100 Near Optimal: 100-129 Borderline High: 130-159 High: 160-189 Very High: >189 5 SEE RESULT BELOW Name: ALY HAIR : [address]: Tawanda Ramirez NP Acct: [id number] Unit: [id number] AGE: 39 Location: [facility] Re05/21/19 SEX: F Status: REG REF SPEC: [id number] JENS: 05/21/[address]: Tawanda Ramirez NP REQ: [id number] RECD: 05/21/19 STATUS: SOUT _ ORDERED: TP IMAGE ANALYS, HPV/Thin Prep, HPV 16/18 GENE COMMENTS: [id number] FINAL DIAGNOSIS Negative for Intraepithelial lesion or Malignancy HPV RESULTS Date Time Test Result Flag (u) Normal Range 05/21/19 1554 HPV ISAURA RFLX GE Negative Negative The high-risk HPV types detected by the assay include: 16, 18, 31, 33, 35, 39, 45, 51, 52, 56, 58, 59, 66, and 68. SPECIMEN(S) RECEIVED A. Ectocervical/Endocervical CYTOLOGY ADEQUACY Specimen Adequacy: Satisfactory of evaluation Transformation zone component identified CONTINUED ON NEXT PAGE DEPARTMENT OF PATHOLOGY, [address] [place] [address] Celestine Rodriguez M.D. Director [facility] # [id number] CYTOLOGY PATIENT INFORMATION Patient Information: HPV: High risk HPV RNA testing regardless of pap results. HPV 16/18 Genotype Reflex Actual Specimen Date: 05/21/19 LMP If Unknown: Last Menstrual Period Not Given. Signed by and Reported on: LUZ Teresa (ASCP) [id number] This Pap test was evaluated with the assistance of the [employer] Test Imaging System. Due to cytologic findings at the sponge press operator microscope, comprehensive manual rescreening by a Employment Training Specialist may be required. The Pap Smear is a screening test designed to aid in the detection of premalignant and malignant conditions of the uterine cervix. It is not a diagnostic procedure and should not be used as the sole means of detecting cervical cancer. Both false- positive and false- negative reports do occur. Depending on your risk status, a Pap smear should be obtained and evaluated every 1-3 years. END OF REPORT DEPARTMENT OF PATHOLOGY, [facility] [place], [place] [address] Celestine Rodriguez M.D. Director [facility] # [id number] 6 Because ethnic data is not always readily available, this report includes an eGFR for both -Americans and non- Americans. The National Kidney Disease Education Program (NKDEP) does not endorse the use of the MDRD equation for patients that are not between the ages of 18 and 70, are , have extremes of body size, muscle mass, or nutritional status, or are non- or non-. According to the National Kidney Foundation, irrespective of diagnosis, the stage of the disease is based on the level of kidney function: Stage Description GFR(mL/min/1.73 m(2)) 1 Kidney damage with normal or decreased GFR 90 2 Kidney damage with mild decrease in GFR 60-89 3 Moderate decrease in GFR 30-59 4 Severe decrease in GFR 15-29 5 Kidney failure <15 (or dialysis) 7 Desirable: <150 Borderline High: 150-199 High: 200-499 Very High: >500 8 Desirable: <200 Borderline High: 200-239 High: >239 9 Low: <40 Desirable: 40-60 High: >60 10 Unable to calculate LDL as triglyceride is > 400 11 [id number] Therapeutic target for the treatment of diabetes mellitus patients is <7% HBA1C, and in selective patients <6.0%. Please refer to [place] [employer] diabetic care guidelines for further information. 13 Desirable: <100 Near Optimal: 100-129 Borderline High: 130-159 High: 160-189 Very High: >189 Procedures Date Code Description Status 05/21/2019 48447 EKG, at Least 12 Leads w/Interpretation and Report Completed Medical Devices Description No Information Available Encounters Type Date Location Provider Dx Diagnosis Office Visit 08/05/2019 Main Office Tawanda Ramirez, G43.A1 Cyclical vomiting, in 8:30a APPLICATION SECURITY SPECIALIST-C migraine, intractable G47.00 Insomnia, unspecified F41.9 Anxiety disorder, unspecified Office Visit 07/15/2019 9:00a Main Office Tawanda Gunderson G47.00 Insomnia, Storm, APPLICATION SECURITY SPECIALIST-C unspecified R51 Headache K58.2 Mixed irritable bowel syndrome Office Visit 06/20/2019 10:15a Main Office Tawanda Gunderson F41.9 Anxiety disorder, Storm, APPLICATION SECURITY SPECIALIST-C unspecified G47.00 Insomnia, unspecified N39.3 Stress incontinence (female) (male) Office Visit 05/21/2019 2:30p Main Office Tawanda Ramirez, Z00.00 Encntr for general APPLICATION SECURITY SPECIALIST-C adult medical exam w/o abnormal findings F41.9 Anxiety disorder, unspecified R00.2 Palpitations R91.1 Solitary pulmonary nodule Assessments Date Code Description Provider 08/05/2019 G43.A1 Cyclical vomiting, in migraine, intractable Sandeepi R. James, APPLICATION SECURITY SPECIALIST-C 08/05/2019 G47.00 Insomnia, unspecified Shawnti R. James, APPLICATION SECURITY SPECIALIST-C 08/05/2019 F41.9 Anxiety disorder, unspecified Shawnti R. Storm, APPLICATION SECURITY SPECIALIST-C 07/15/2019 G47.00 Insomnia, unspecified Shawnti R. Storm, APPLICATION SECURITY SPECIALIST-C 07/15/2019 R51 Headache Shawnti R. James, APPLICATION SECURITY SPECIALIST-C 07/15/2019 K58.2 Mixed irritable bowel syndrome Mannywnti RAbby Ramirez, APPLICATION SECURITY SPECIALIST-C 06/20/2019 F41.9 Anxiety disorder, unspecified Shawnti R. Storm, APPLICATION SECURITY SPECIALIST-C 06/20/2019 G47.00 Insomnia, unspecified Shawnti R. Storm, APPLICATION SECURITY SPECIALIST-C 06/20/2019 N39.3 Stress incontinence (female) (male) Tawanda Ramirez, APPLICATION SECURITY SPECIALIST-C 06/10/2019 E78.1 Pure hyperglyceridemia Tawanda Ramirez, APPLICATION SECURITY SPECIALIST-C 06/10/2019 E78.1 Pure hyperglyceridemia Lab and Office Services 05/21/2019 Z00.00 Encounter for general adult medical Doroteo Back M.D. examination without abnormal findings 05/21/2019 Z00.00 Encounter for general adult medical Tawanda Ramirez APPLICATION SECURITY SPECIALIST- C examination without abnormal findings 05/21/2019 F41.9 Anxiety disorder, unspecified Doroteo Back M.D. 05/21/2019 F41.9 Anxiety disorder, unspecified ALBERTA Mcdonough-C 05/21/2019 R00.2 Palpitations Doroteo Back M.D. 05/21/2019 R00.2 Palpitations ALBERTA Mcdonough-C 05/21/2019 R91.1 Solitary pulmonary nodule Doroteo Back M.D. 05/21/2019 R91.1 Solitary pulmonary nodule ALBERTA Mcdonough-C Plan of Treatment Future Appointment(s):08/26/2019 9:30 am - MELANIE Mcdonough at [facility]/26/2020 1:30 pm - MELANIE Mcdonough at [facility]2019 - ALBERTA Mcdonough-CG43.A1 Cyclical vomiting, in migraine, intractableComments:cyclical episodes of vomiting with diarrhea despite medication, change medication to pantoprazole and refer to GIFollow up:Referral to [facility].00 Insomnia, unspecifiedNew Medication:Amitriptyline HCL 50 mg - take one tablet by mouth at bedtime for sleep and depressionComments:Tolerating amitriptyline well, sub therapeutic response, increase to 50 mg dailyFollow up:3 -4 weeks for follow up with PCPF41.9 Anxiety disorder, unspecifiedComments: Anxiety controlled, propitiate to life events. Functional Status Description No Information Available Mental Status Description No Information Available Referrals Refer to Reason for Referral Status Appt Date [facility] Referral to cardiology for Closed 07/01/2019 evaluation/palpitations. - - Please contact the Pt to schedule an appt. - - Please fax appointment date/time to [facility], . [facility] [place] [address] [phone]
--- OUTSIDE RECORDS SUMMARY | 2019-09-06 19:06 | XMS REPORT | Continuity of Care Document ---
:1980 External Reference #:[id number] Author Name MELANIE Mcdonough Address [address] [place] [address] Problems Description No Information Available Social History [...] Medications SIG Qnty Indications Ordering Date Provider Gustavo Drink Mix Drink One Packet 24units K58.2 Tawanda R. 07/15/2019 In 8 Ounces Of ALBERTA Ramirez-Remy Packet Fluids Twice Daily Amitriptyline HCL take one tablet 30tabs G47.00 Mannywclemencia R. 07/15/2019 25mg by mouth at James RECLAIMER-C Tablets bedtime Fluoxetine HCL 1 by mouth every 30caps F41.9 Tawanda R. 05/21/2019 20mg day ALBERTA Ramirez-C Capsules History Medications Trazodone HCL take 1 or 2 60tabs G47.00 Mannywnti R. 06/20/2019 - 50mg tablet by mouth James RECLAIMER-C 07/15/2019 Tablets at bedtime if needed for sleep No Active Unknown 05/21/2019 - Medications 05/21/2019 Immunizations CPT Code Status Date Vaccine Lot # [id number] Given 04/08/2019 Influenza Virus Vaccine, Quadrivalent, 3 Yr > Quad, Preserv Free Vital Signs Date Vital Result Comment 07/15/2019 8:36am Weight 122.00 lb Weight 55.339 kg BP Systolic 110 mmHg BP Diastolic 70 mmHg Heart Rate 78 /min Body Temperature 97.2 F Respiratory Rate 16 /min O2 % BldC Oximetry 97 % 06/20/2019 9:56am Weight 116.00 lb Weight 52.618 kg BP Systolic 104 mmHg BP Diastolic 60 mmHg Heart Rate 78 /min Body Temperature 98.3 F Respiratory Rate 14 /min Results Test Acquired Date Facility Test Result H/L Range Note Lipid Profile 06/10/2019 [facility] Triglycerides 272 mg/dL 1 (Trig/Chol/HDL) [phone] Cholesterol 185 mg/dL 2 HDL Cholesterol 50.9 mg/dL 3 LDL Cholesterol 80 mg/dL 4 Laboratory test 05/21/2019 [facility] Cytology SEE RESULT 5 finding [phone] BELOW CBC Auto Diff 05/21/2019 [facility] White Blood 10.2 Normal 3.5-3 [phone] Count 10^3/uL 0.8 Red Blood Count 4.65 [...] Blood Cells % 0.5 Comp Metabolic 05/21/2019 [facility] Sodium 139 mmol/ L Normal 135-145 Panel [phone] Potassium 4.3 mmol/L Normal 3.5-5.0 Chloride 106 [...] Egfr 97.7 >60 6 Lipid Profile 05/21/2019 [facility] Triglycerides 429 mg/dL 7 (Trig/Chol/HDL) [phone] Cholesterol 186 mg/dL 8 HDL Cholesterol 41.1 mg/dL 9 LDL Cholesterol (SEE NOTE) mg/dL 10 Laboratory 05/21/2019 [facility] TSH (Thyroid 1.92 Normal 0.34-5.60 11 test finding [phone] Stim Horm) mcIU/mL Hemoglobin A1c (Glyco HGB) 5.1 % Normal 4.0-5.6 12 LDL Cholesterol Direct 114 mg/dL 13 1 Desirable: <150 Borderline High: 150-199 High: 200-499 Very High: >500 2 Desirable: <200 Borderline High: 200-239 High: >239 3 Low: <40 Desirable: 40-60 High: >60 4 Desirable: <100 Near Optimal: 100-129 Borderline High: 130-159 High: 160-189 Very High: >189 5 SEE RESULT BELOW Name: FLORIDALMA HAIR : [address]: Tawanda Ramirez NP Acct: [id number] Unit: [id number] AGE: 39 Location: [facility] Re05/21/19 SEX: F Status: REG REF SPEC: [id number] JENS: 05/21/[address] [facility] [address]: Tawanda Ramirez NP REQ: [id number] RECD: 05/21/19 STATUS: SOUT _ ORDERED: TP IMAGE ANALYS, HPV/Thin Prep, HPV 16/18 GENE COMMENTS: [id number] FINAL DIAGNOSIS Negative for Intraepithelial lesion or [...] CONTINUED ON NEXT PAGE DEPARTMENT OF PATHOLOGY, [address] [place] [address] Celestine Rodriguez M.D. Director [facility] # [id number] CYTOLOGY PATIENT INFORMATION Patient Information: HPV: High risk HPV RNA testing regardless of pap results. HPV 16/18 Genotype Reflex Actual Specimen Date: 05/21/19 LMP If Unknown: Last Menstrual Period Not Given. Signed by and Reported on: LUZ Teresa (ASCP) 6905 This Pap test was evaluated with the assistance of the [employer] Test Imaging System. Due to cytologic findings at the neuropsychology director microscope, comprehensive manual rescreening by a Director Channel may be required. The Pap Smear is [...] years. END OF REPORT DEPARTMENT OF PATHOLOGY, [address] [place] [address] Celestine Rodriguez M.D. Director [facility] # [id number] 6 Because ethnic data is not always [...] LDL as triglyceride is > 400 11 [id number] 12 Therapeutic target for the treatment of diabetes mellitus patients is <7% HBA1C, and in selective patients <6.0%. Please refer to [place] Diabetes Association diabetic care guidelines for further information. 13 Desirable: <100 Near Optimal: 100-129 Borderline High: 130-159 High: 160-189 Very High: >189 Procedures Date Code Description Status 05/21/2019 99340 EKG, at Least 12 Leads w/Interpretation and Report Completed Medical Devices Description No Information Available Encounters Type Date Location Provider Dx Diagnosis Office Visit 06/20/2019 Main Office Tawanda Ramirez, F41.9 Anxiety disorder, 10:15a RECLAIMER-C unspecified G47.00 Insomnia, unspecified N39.3 Stress incontinence (female) (male) Office Visit 05/21/2019 2:30p Main Office Tawanda Ramirez, Z00.00 Encntr for general RECLAIMER-C adult medical exam w/o abnormal findings F41.9 Anxiety disorder, unspecified R00.2 Palpitations R91.1 Solitary pulmonary nodule Assessments Date Code Description Provider 07/15/2019 G47.00 Insomnia, unspecified Mannywcarolinei R. James, RECLAIMER-C 07/15/2019 R51 Headache Mannywnti R. James, RECLAIMER-C 07/15/2019 K58.2 Mixed irritable bowel syndrome Shawnti RAbby Ramirez, RECLAIMER-C 06/20/2019 F41.9 Anxiety disorder, unspecified Shawnti R. Storm, RECLAIMER-C 06/20/2019 G47.00 Insomnia, unspecified Shawnti R. Storm, RECLAIMER-C 06/20/2019 N39.3 Stress incontinence (female) (male) Mannywnti R. James, RECLAIMER-C 06/10/2019 E78.1 Pure hyperglyceridemia Shawnti R. James, RECLAIMER-C 06/10/2019 E78.1 Pure hyperglyceridemia Lab and Office Services 05/21/2019 Z00.00 Encounter for general adult medical Doroteo Back M.D. examination without abnormal findings 05/21/2019 Z00.00 Encounter for general adult medical AMISHA Mcdonough examination without abnormal findings 05/21/2019 F41.9 Anxiety disorder, unspecified Doroteo Back M.D. 05/21/2019 F41.9 Anxiety disorder, unspecified MELANIE Mcdonough 05/21/2019 R00.2 Palpitations Doroteo Back M.D. 05/21/2019 R00.2 Palpitations MELANIE Mcdonough 05/21/2019 R91.1 Solitary pulmonary nodule Doroteo Back M.D. 05/21/2019 R91.1 Solitary pulmonary nodule MELANIE Mcdonough Plan of Treatment Future Appointment(s):08/05/2019 8:30 am - MELANIE Mcdonough at [facility]05/26/2020 1:30 pm - MELANIE Mcdonough at [facility]2019 - AMISHA McdonoughCG47.00 Insomnia, unspecifiedNew Medication: Amitriptyline HCL 25 mg - take one tablet by mouth at bedtimeComments:stop trazodone, trial of amitriptyline before bed, may help with insomnia as well as migraines. Stress reduction is also importantFollow up:3 TO 4 [id number] HeadacheComments:trial of rjkvvkfzotmwgJ14.2 Mixed irritable bowel syndromeNew Medication:Benefiber Drink Mix - Drink One Packet In 8 Ounces Of Fluids Twice DailyComments:add daily fiber to regulate stool consistency, if this is not helpful will refer to GI Functional Status Description No Information Available Mental Status Description No Information Available Referrals Refer to Reason for Referral Status Appt Date [facility] Referral to cardiology for Closed 07/01/2019 evaluation/palpitations. - - Please contact the Pt to schedule an appt. - - Please fax appointment date/time to [facility], [phone]. [address] [place] [address] [phone]
[2019-09-06 19:12] VITALS: BP 136/80
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
== END 2019-09-06 20:00 | disposition home or self-care (01) ==
LOC: UCEAST 18:50
DX: S50.12XA Contusion of left forearm, initial encounter (principal); W50.3XXA Accidental bite by another person, initial encounter; Y93.F9 Activity, other caregiving; Y92.129 Unspecified place in nursing home as the place of occurrence of the external cause; Y99.0 Civilian activity done for income or pay; Z88.1 Allergy status to other antibiotic agents; F17.210 Nicotine dependence, cigarettes, uncomplicated
CPT/HCPCS: 99211; G0463

== ENCOUNTER 2020-04-09 21:08 | Observation (INO) ==
[2020-04-09] MEDS ORDERED: Prochlorperazine 5 mg/ml 2 ml VIAL (10 mg) IV ONE (21:46)
[2020-04-09] MEDS ORDERED: Morphine 4 MG/ML VIAL (1 ml) IV ONE (21:46)
[2020-04-09] MEDS ORDERED: Morphine 4 MG/ML VIAL (1 ml) IV PRN (21:46)
[2020-04-09] MEDS ORDERED: NS 0.9% 1000 ml BAG 2,000 ML IV ONE (21:46)
[2020-04-09 23:07] LABS: ABS Basophils 0.1 10^3/ul (0-0.2); ABS Lymphocytes 1.7 10^3/ul (1.0-4.8); ABS Monocytes 0.7 10^3/ul (0-0.8); ABS Neutrophils 6.5 10^3/ul (1.5-7.7); Eosinophil % 0.3 %; Hematocrit 40 % (35-47); Hemoglobin 13.8 g/dL (12.0-16.0); Mean Corpuscular HGB Conc 35 g/dL (31-36); Mean Corpuscular Hemoglobin 32 pg (27-31); Mean Corpuscular Volume 91 fL (80-97); Mean Platelet Volume 7.6 fL (7.4-10.4); Nucleated Red Blood Cells % 0.1; Platelet Count 380 10^3/uL (150-450); Red Blood Count 4.37 10^6 /uL (3.70-4.87); Red Cell Distribution Width 13 % (10-15)
[2020-04-09 23:24] LABS: ALT 8 U/L (7-52); AST 14 U/L (13-39); Albumin 4.2 g/dL (3.2-5.2); Albumin/Globulin Ratio 1.5 (1-3); Alkaline Phosphatase 58 U/L (34-104); Anion Gap 12 mmol/L (2-11); BUN/Creatinine Ratio 8.1 (8-20); Blood Urea Nitrogen 6 mg/dL (6-24); CO2 Carbon Dioxide 22 mmol/L (22-32); Calcium 8.3 mg/dL (8.6-10.3); Chloride 106 mmol/L (101-111); EGFR African American 106.3 (>60); EGFR Non-African American 87.8 (>60); Globulin 2.8 g/dL (2-4); Glucose 141 mg/dL (70-100); Potassium 4.1 mmol/L (3.5-5.0); Sodium 140 mmol/L (135-145)
[2020-04-09] MEDS ORDERED: methylPREDNISolone 125 mg 2 ML VIAL IV ONE (23:26)
[2020-04-09] MEDS ORDERED: Haloperidol 5 mg/ml SDV IV/IM 5 MG/ML AMP IV SLOW PU ONE (23:26)
[2020-04-09 23:32] LABS: HCG Pregnancy < 0.60 mIU/mL
[2020-04-09 23:37] LABS: INR 1.18 (0.82-1.09)
[2020-04-10 00:28] LABS: C Reactive Protein 3.72 mg/L (<8.01)
[2020-04-10] MEDS ORDERED: Ondansetron 4 mg VIAL 2 MG/ML 2 ml VIAL IV PRN (01:15)
[2020-04-10] MEDS ORDERED: Ondansetron 4 mg VIAL 2 MG/ML 2 ml VIAL IV ONE (01:15)
[2020-04-10] MEDS ORDERED: Metoclopramide 5 MG/ML VIAL (10 mg) IV PRN (01:19)
[2020-04-10 01:57] LABS: Lipase 33 U/L (11.0-82.0)
[2020-04-10] MEDS ORDERED: Lactated Ringers 1000 ml BAG 1,000 ML IV SCH (02:00)
[2020-04-10] MEDS ORDERED: Piperacillin/Tazobac ADVAN 3.375 GM in NS 0.9% 100 ml BAG 100 ML IV ONE (02:55)
[2020-04-10] MEDS ORDERED: Zosyn per Pharmacy NOTE FOLLOW UP SCH (03:00)
[2020-04-10] MEDS ORDERED: Iohexol 300 (CONTRAST) 10 ML SDV IV ONE (03:18)
[2020-04-10] MEDS: HYDROmorphone 0.5 MG/0.5 ML SYRINGE IV SLOW PU PRN ×4 (03:44→20:37)
[2020-04-10 05:02] LABS: Urine Appearance Clear; Urine Bilirubin Negative (Negative); Urine Blood 1+ (Negative); Urine Color Straw; Urine Glucose Negative (Negative); Urine Ketones Negative (Negative); Urine Nitrite Negative (Negative); Urine Protein Negative (Negative); Urine Specific Gravity 1.024 (1.010-1.030); Urine Urobilinogen Negative (Negative)
[2020-04-10 05:19] LABS: Urine Bacteria Absent (Absent); Urine Red Blood Cell Trace(0-2/hpf) (Absent); Urine Squamous Epithelial Cell Present (Absent); Urine White Blood Cell Trace(0-5/hpf) (Absent)
[2020-04-10] MEDS: ZOSYN 3.375 GM Q8H per EXTENDED INFUSION IV SCH ×2 (08:34→15:44)
[2020-04-10] MEDS: NS 0.9% 1000 ml BAG 1,000 ML IV SCH ×2 (08:45→10:46)
[2020-04-10] MEDS ORDERED: NS 0.9% 1000 ml BAG 1,000 ML IV SCH (08:45)
[2020-04-10] MEDS ORDERED: Pneumococcal Vac 23-Polyvalent IM ONE (09:00)
[2020-04-10] MEDS ORDERED: Influenza VAC *QUAD* 2020-21* 0.5 ML SYRINGE IM ONE (09:00)
[2020-04-10] MEDS: Pantoprazole VIAL 40 MG VIAL IV SCH ×2 (12:24→20:38)
[2020-04-10 13:46] LABS: Urine Appearance Cloudy; Urine Bilirubin Negative (Negative); Urine Blood 2+ (Negative); Urine Color Yellow; Urine Glucose Negative (Negative); Urine Ketones Negative (Negative); Urine Nitrite Negative (Negative); Urine Protein Negative (Negative); Urine Specific Gravity 1.026 (1.010-1.030); Urine Urobilinogen Negative (Negative)
[2020-04-10 13:53] LABS: Urine Bacteria Absent (Absent); Urine Red Blood Cell Trace(0-2/hpf) (Absent); Urine Squamous Epithelial Cell Present (Absent); Urine White Blood Cell Trace(0-5/hpf) (Absent)
[2020-04-10 16:25] LABS: Urine Benzodiazepine Screen None Detected (None Detect); Urine Cannabinoids Screen None Detected (None Detect); Urine Opiates Screen Presumptive Positive (None Detect)
[2020-04-10] MEDS ORDERED: Gadoteridol (CONTRAST) 279.3 MG/ML 10 ML IV ONE (17:37)
[2020-04-11] MEDS: D5NS 0.9% 1000 ml BAG 1,000 ML IV SCH ×2 (00:07→10:14)
[2020-04-11] MEDS: ZOSYN 3.375 GM Q8H per EXTENDED INFUSION IV SCH ×3 (00:15→16:23)
[2020-04-11 07:04] LABS: ABS Basophils 0.1 10^3/ul (0-0.2); ABS Lymphocytes 2.2 10^3/ul (1.0-4.8); ABS Monocytes 0.9 10^3/ul (0-0.8); ABS Neutrophils 12.5 10^3/ul (1.5-7.7); Eosinophil % 0.2 %; Hematocrit 33 % (35-47); Lymphocyte % 13.7 %; Mean Corpuscular HGB Conc 34 g/dL (31-36); Mean Corpuscular Hemoglobin 32 pg (27-31); Mean Corpuscular Volume 93 fL (80-97); Mean Platelet Volume 8.6 fL (7.4-10.4); Platelet Count 322 10^3/uL (150-450); Red Cell Distribution Width 13 % (10-15); White Blood Count 15.7 10^3/uL (3.5-10.8)
[2020-04-11 07:15] LABS: BUN/Creatinine Ratio 10.1 (8-20); Calcium 7.7 mg/dL (8.6-10.3); EGFR African American 98.6 (>60); EGFR Non-African American 81.4 (>60)
[2020-04-11] MEDS: Pantoprazole VIAL 40 MG VIAL IV SCH ×2 (07:50→22:01)
[2020-04-11 08:52] LABS: Potassium 3.7 mmol/L (3.5-5.0)
[2020-04-12] MEDS: ZOSYN 3.375 GM Q8H per EXTENDED INFUSION IV SCH ×2 (00:18→10:32)
[2020-04-12 07:14] LABS: ABS Basophils 0.1 10^3/ul (0-0.2); ABS Eosinophils 0.1 10^3/ul (0-0.6); ABS Lymphocytes 2.5 10^3/ul (1.0-4.8); ABS Monocytes 0.8 10^3/ul (0-0.8); ABS Neutrophils 7.7 10^3/ul (1.5-7.7); Eosinophil % 0.5 %; Hematocrit 34 % (35-47); Hemoglobin 11.6 g/dL (12.0-16.0); Lymphocyte % 22.2 %; Mean Corpuscular HGB Conc 34 g/dL (31-36); Mean Corpuscular Hemoglobin 32 pg (27-31); Mean Corpuscular Volume 92 fL (80-97); Mean Platelet Volume 7.9 fL (7.4-10.4); Platelet Count 316 10^3/uL (150-450); Red Blood Count 3.68 10^6 /uL (3.70-4.87); Red Cell Distribution Width 12 % (10-15); White Blood Count 11.2 10^3/uL (3.5-10.8)
[2020-04-12 07:31] LABS: C Reactive Protein 14.28 mg/L (<8.01); Calcium 8.3 mg/dL (8.6-10.3); EGFR African American 97.1 (>60); EGFR Non-African American 80.3 (>60); Potassium 3.7 mmol/L (3.5-5.0)
[2020-04-12] MEDS: Pantoprazole VIAL 40 MG VIAL IV SCH (10:34)
[2020-04-12 15:28] VITALS: BP 115/66
== END 2020-04-12 15:45 | disposition home or self-care (01) ==
LOC: ED 21:08 → MED 21:08
PROVIDERS: ADMIT Internal Medicine; ATTEND Internal Medicine